=== PATIENT | male | born 1945 | race Caucasian/White ===

== ENCOUNTER → 2024-03-10 14:22 | Outpatient (BNVA) | payer OTHER, SELFPAY | PROVIDERS: Visit Provider Internal Medicine | DX: R07.9 Chest pain, unspecified (principal); Z95.0 Presence of cardiac pacemaker | CPT/HCPCS: 93005 ==

== ENCOUNTER → 2024-09-21 09:29 | Outpatient (BNVA) | payer MEDICARE, SELFPAY | PROVIDERS: PCP Nurse Practitioner Family; Visit Provider Nurse Practitioner | DX: M25.561 Pain in right knee (principal); M17.11 Unilateral primary osteoarthritis, right knee; S83.206A Unspecified tear of unspecified meniscus, current injury, right knee, initial encounter; X58.XXXA Exposure to other specified factors, initial encounter | CPT/HCPCS: 73560; 73565 ==

== ENCOUNTER 2024-09-21 11:47 | Outpatient (CLI) | payer MEDICARE, SELFPAY | END 2024-09-21 11:48 | disposition home or self-care (01) | LOC: SPT 11:47 | PROVIDERS: PCP Nurse Practitioner Family; Visit Provider Nurse Practitioner | DX: Z46.89 Encounter for fitting and adjustment of other specified devices (principal); M23.51 Chronic instability of knee, right knee | CPT/HCPCS: L1812 ==

== ENCOUNTER 2024-10-11 15:07 | Outpatient (CLI) | payer MEDICARE, SELFPAY ==
--- NOTE | 2024-10-11 15:34 | CT_ITS ---
WS: [id number] CT FACIAL BONES TECHNIQUE: Noncontrast facial bones with coronal and sagittal reformatted images. CLINICAL INFORMATION: PITUITARY GLAND COMPARISON: None. DLP: 583.[address] scans at [facility] use at least one of these dose optimization techniques: automated exposure control; mA and/or kV adjustment per patient size (includes targeted exams where dose is matched to clinical indication); or iterative reconstruction. FINDINGS: No evidence of large intrasellar or suprasellar mass. Further evaluation of the pituitary is difficult without contrast and would be much better assessed with MRI if patient is a candidate. Cavernous carotid calcification. Moderate small vessel changes partially visualized. Vascular calcification. Tiny chronic lacunar infarcts RIGHT caudate and basal ganglia. Paranasal sinuses appear well aerated. Mastoid air cells are well aerated. Moderate spondylitic changes upper cervical spine with disc osteophyte complexes and mild to moderate central canal stenosis. CT/CT facial bones wo con* [id number] IMPRESSION: 1. Very limited evaluation of the pituitary tissue on this noncontrast CT. Thi s would be much better assessed with MRI without and with gadolinium with pitui tary protocol if patient is a candidate. 2. No evidence of large intrasellar or suprasellar mass or macroadenoma. 3. Cavernous carotid calcification 4. Moderate small vessel changes 5. Mild to moderate central canal stenosis in the upper cervical spine with di sc osteophyte complexes.
== END 2024-10-11 15:08 | disposition home or self-care (01) ==
LOC: RAD 15:08
PROVIDERS: PCP Nurse Practitioner Family; Visit Provider Internal Medicine
DX: E23.0 Hypopituitarism (principal); E27.40 Unspecified adrenocortical insufficiency; M48.02 Spinal stenosis, cervical region; M25.78 Osteophyte, vertebrae; Z86.018 Personal history of other benign neoplasm; E11.9 Type 2 diabetes mellitus without complications
CPT/HCPCS: 70486

== ENCOUNTER 2024-10-15 09:02 | Outpatient (CLI) | payer MEDICARE, SELFPAY ==
--- NOTE | 2024-10-15 09:11 | CT_ITS ---
WS: [id number] CT RIGHT KNEE ARTHROGRAM HISTORY: Right knee pain Technique: All CT scans at [facility] use at least one of these dose optimization techniques: automated exposure control; mA and/or kV adjustment per patient size (includes targeted exams where dose is matched to clinical indication); or iterative reconstruction. DLP: 530.52 mGy.cm COMPARISON: Radiograph 09/21/2024 Imaging performed of the RIGHT knee post arthrogram. There is a large amount of contrast filling the joint space. The joint is normally aligned. Slight lateral subluxation of the patella. Patellofemoral joint: Very mild narrowing the patellofemoral joint space. There are multiple small fissures in the cartilage of the medial and lateral patellar retinaculum and at the patellar eminence. Mild thinning of the cartilage. Subchondral cystic changes noted within the patellar eminence. Medial knee joint: Tear towards the meniscal root involving the anterior horn. There is an additional tear at the free edge. Small caliber anterior horn. Lateral knee joint: No meniscal tear is identified. Large Brown's cyst fills with contrast. No ACL tear or PCL tear identified. No intra-articular loose bodies. No muscle atrophy. Scattered calcifications in the distal femoral and the popliteal artery. CT/CT knee RT w con [id number] IMPRESSION: 1. Mild narrowing of the patellofemoral joint space. Numerous small fissures i n the cartilage of the medial and lateral patellar retinaculum and at the lawler lar eminence. 2. Tear involving the posterior horn medial meniscus involving the meniscal ro ot. There is blunting of the free edge also suspected and there is an additiona l tear at the free edge. 3. Large Brown's cyst. 4. ACL appears intact.
--- NOTE | 2024-10-15 09:15 | IR_ITS ---
WS: [id number] RIGHT KNEE ARTHROGRAM (FLUOROSCOPY) RIGHT knee arthrogram was performed in fluoroscopy prior to CT evaluation. HISTORY: Right knee pain COMPARISON: None. FLUOROSCOPY TIME: 0min [id number] # of spot films: 3 Procedure, risks and complications were explained to the patient. Complications include but not limited to bleeding, infection and contrast reaction. Current medications are reviewed. Skin is cleansed with ChloraPrep. Skin is anesthetized with 1% buffered lidocaine. 22-gauge needle is inserted into the medial RIGHT knee joint. Approximately 30 cc of Omnipaque saline mixture injected without complication. Patient will proceed to CT evaluation immediately. No complications were encountered. Patient is instructed to watch for post procedure infection or bleeding. Patient is also instructed to contact the radiology department with any concerns. IR/[place] [id number] IMPRESSION: Uncomplicated RIGHT knee joint injection prior to CT arthrogram.
[2024-10-15] MEDS: iohexol 240 mg/mL 50 mL Btl 45 ML INTRA-ARTI (10:06)
== END 2024-10-15 09:03 | disposition home or self-care (01) ==
LOC: RAD 09:04
PROVIDERS: PCP Nurse Practitioner Family; Visit Provider Nurse Practitioner
DX: M25.561 Pain in right knee (principal); M71.21 Synovial cyst of popliteal space [Baker], right knee; M23.221 Derangement of posterior horn of medial meniscus due to old tear or injury, right knee
CPT/HCPCS: 27369; 73701; 77002; J9999; Q9966

== ENCOUNTER → 2024-11-08 12:46 | Outpatient (BNVA) | payer MEDICARE, SELFPAY | PROVIDERS: PCP Nurse Practitioner Family; Visit Provider Nurse Practitioner | DX: S83.221A Peripheral tear of medial meniscus, current injury, right knee, initial encounter (principal); M17.11 Unilateral primary osteoarthritis, right knee; X58.XXXA Exposure to other specified factors, initial encounter | CPT/HCPCS: 99214 ==

== ENCOUNTER → 2024-11-12 10:35 | Outpatient (BNVA) | payer MEDICARE, SELFPAY | PROVIDERS: PCP Nurse Practitioner Family; Visit Provider Internal Medicine | DX: E11.9 Type 2 diabetes mellitus without complications (principal); E29.1 Testicular hypofunction | CPT/HCPCS: 36415; 80053; 80061; 84403; 85025 ==

== ENCOUNTER → 2024-11-24 08:59 | Outpatient (BNVA) | payer MEDICARE, SELFPAY | PROVIDERS: PCP Nurse Practitioner Family; Visit Provider Podiatrist Foot & Ankle Surgery | DX: E11.9 Type 2 diabetes mellitus without complications (principal); M19.071 Primary osteoarthritis, right ankle and foot; M79.671 Pain in right foot | CPT/HCPCS: 73630; 99203 ==

== ENCOUNTER 2025-01-17 10:33 | Outpatient (CLI) | payer MEDICARE, SELFPAY ==
[2025-01-17 11:57] LABS: Estmated Average Glucose 292; Hemoglobin A1C 11.8 % (4.0-6.0)
== END 2025-01-17 10:34 | disposition home or self-care (01) ==
PROVIDERS: Family Medicine; PCP Nurse Practitioner Family; Visit Provider Internal Medicine
DX: E11.9 Type 2 diabetes mellitus without complications (principal)
CPT/HCPCS: 36415; 83036